=== PATIENT | female | born 1940 | race Two or more races ===

== ENCOUNTER 2020-12-06 13:45 | Outpatient (CLI) | payer MEDICARE, OTHER ==
[2020-12-06] MEDS ORDERED: LIDOCAINE SOLN 4% 50 ML BOTTLE ONE (14:41)
== END 2020-12-06 23:59 | disposition home health service (06) ==
LOC: WOU 13:45
PROVIDERS: ATTEND Surgery
DX: L89.613 Pressure ulcer of right heel, stage 3 (principal); L89.620 Pressure ulcer of left heel, unstageable; F03.91 Unspecified dementia, unspecified severity, with behavioral disturbance; I10 Essential (primary) hypertension; Z79.02 Long term (current) use of antithrombotics/antiplatelets
CPT/HCPCS: 11042; A6209

== ENCOUNTER 2020-12-20 13:40 | Outpatient (CLI) | payer MEDICARE, OTHER ==
[2020-12-20] MEDS ORDERED: LIDOCAINE HCL/MPF 1% 30 ML VIAL IJ ONE (15:34)
== END 2020-12-20 23:59 | disposition home health service (06) ==
LOC: WOU 13:40
PROVIDERS: ATTEND Surgery
DX: L89.623 Pressure ulcer of left heel, stage 3 (principal); L89.614 Pressure ulcer of right heel, stage 4; F03.90 Unspecified dementia, unspecified severity, without behavioral disturbance, psychotic disturbance, mood disturbance, and anxiety; Z79.899 Other long term (current) drug therapy; I51.9 Heart disease, unspecified
CPT/HCPCS: 11042; 11043; 11046; A6197; J3490

== ENCOUNTER 2020-12-27 13:50 | Outpatient (CLI) | payer MEDICARE, OTHER | END 2020-12-27 23:59 | disposition home health service (06) | LOC: WOU 13:50 | PROVIDERS: ATTEND Surgery | DX: L89.614 Pressure ulcer of right heel, stage 4 (principal); L89.623 Pressure ulcer of left heel, stage 3; F03.91 Unspecified dementia, unspecified severity, with behavioral disturbance; Z79.02 Long term (current) use of antithrombotics/antiplatelets | CPT/HCPCS: 11043; A6209 ×2 ==

== ENCOUNTER 2021-01-03 13:20 | Outpatient (CLI) | payer MEDICARE, OTHER ==
[2021-01-03] MEDS ORDERED: SILVER NITRATE APPLICATOR 1 EA BOX ONE (14:24)
[2021-01-03] MEDS ORDERED: LIDOCAINE SOLN 4% 50 ML BOTTLE ONE (14:26)
== END 2021-01-03 23:59 | disposition home health service (06) ==
LOC: WOU 13:20
PROVIDERS: ATTEND Surgery
DX: L89.614 Pressure ulcer of right heel, stage 4 (principal); L89.623 Pressure ulcer of left heel, stage 3; F03.91 Unspecified dementia, unspecified severity, with behavioral disturbance; Z79.02 Long term (current) use of antithrombotics/antiplatelets
CPT/HCPCS: 11042; 11043; 87070; 87075; 87077; 87186; A6209

== ENCOUNTER 2021-01-31 14:15 | Outpatient (CLI) | payer MEDICARE, OTHER ==
[2021-01-31] MEDS ORDERED: LIDOCAINE SOLN 4% 50 ML BOTTLE ONE (14:43)
== END 2021-01-31 23:59 | disposition home health service (06) ==
LOC: WOU 14:15
PROVIDERS: ATTEND Surgery
DX: L89.614 Pressure ulcer of right heel, stage 4 (principal); F03.91 Unspecified dementia, unspecified severity, with behavioral disturbance; Z79.02 Long term (current) use of antithrombotics/antiplatelets
CPT/HCPCS: A6209; G0463

== ENCOUNTER 2021-02-21 14:15 | Outpatient (CLI) | payer MEDICARE, OTHER | END 2021-02-21 23:59 | disposition home health service (06) | LOC: WOU 14:15 | PROVIDERS: ATTEND Surgery | DX: L89.614 Pressure ulcer of right heel, stage 4 (principal); F03.91 Unspecified dementia, unspecified severity, with behavioral disturbance; Z79.02 Long term (current) use of antithrombotics/antiplatelets | CPT/HCPCS: 11042; A6209 ==

== ENCOUNTER 2021-03-07 14:00 | Outpatient (CLI) | payer MEDICARE, OTHER | END 2021-03-07 23:59 | disposition home health service (06) | LOC: WOU 14:00 | PROVIDERS: ATTEND Surgery | DX: L89.614 Pressure ulcer of right heel, stage 4 (principal); F03.91 Unspecified dementia, unspecified severity, with behavioral disturbance; Z79.02 Long term (current) use of antithrombotics/antiplatelets | CPT/HCPCS: 11042; A6209 ==